=== PATIENT | female | born 1945 | race Caucasian/White ===

== ENCOUNTER 2024-08-11 13:49 | Emergency (ER) | payer MEDICARE, SELFPAY ==
[2024-08-11 16:30] VITALS: BP 128/86
--- NOTE | 2024-08-11 17:02 | ED.GENMED ---
History of Present Illness
General
Chief Complaint: Fall
Time Seen by Provider: 08/11/24 15:18
History of Present Illness
History of Present Illness:
Note:
CHIEF COMPLAINT(S)
Head trauma due to a fall from a recliner while playing with her granddaughter.
HISTORY OF PRESENT ILLNESS
The patient is a 76-year-old female who experienced a fall from a recliner while playing with her granddaughter. The fall resulted in her hitting her head on a window sill, with noted tenderness and a slight bogginess in the area of impact. The
incident was unwitnessed, and the patient reports no neck pain when pressure is applied to the cervical spine, and no chest or abdominal pain. Additionally, she denied any arm or leg weakness or pain. There is a prior history of a fall approximately
six months ago, but no concussion was diagnosed at that time. The patient is not on any anticoagulant therapy.
PHYSICAL EXAM
- Neurological: Tenderness and slight bogginess noted at the site of the head impact.
- Respiratory: Clear lung sounds, no pain upon deep breathing.
- Musculoskeletal: No tenderness upon palpation of the thoracic spine.
- Abdominal: No tenderness noted upon palpation.
- Vital signs reviewed. Nursing notes reviewed.
PLAN
1. Obtain a CT scan of the head to rule out any intracranial bleeding, given the patients age and the presence of a bump.
2. Follow-up to discuss CT results and further management.
DIFFERENTIAL DIAGNOSIS
The Differential Diagnosis includes, in no particular order and is not limited to:
1. Head trauma
2. Intracranial bleed
3. Concussion
4. Skull fracture
5. Subdural hematoma
6. Cervical spine injury
7. Scalp hematoma
8. Post-concussive syndrome
9. Contusion
10. Traumatic brain injury
CARE-UPDATE
08/11/24 - 17:[address] scan results show no signs of bleeding, confirming there are no acute intracranial issues. The patient reports feeling well and is deemed safe for discharge. Discharge paperwork will be prepared, and the patient is cleared to return home.
Phy Exam
Physical Exam
Physical Exam:
See HPI
Course
Orders/Labs/Results
Orders:
Orders
08/11/24 15:25
CT Head W/o Iv Contrast Urgent
Comment:
Reason For Exam: head trauma HURST
Vital Signs
Initial and Last Documented VS:
Initial Vital Signs
Temp Pulse Resp Pulse Ox
36.8 C 83 17 99
08/11/24 13:54 08/11/24 13:54 08/11/24 13:54 08/11/24 13:54
Last Documented Vital Signs
Temp Pulse Resp BP Pulse Ox
36.6 C 79 16 128/86 98
08/11/24 16:30 08/11/24 16:30 08/11/24 16:30 08/11/24 16:30 08/11/24 16:30
*Critical Care Note
Total Time (30-74mins, 75-104mins- exclusive of procedures): Not Applicable
ED Attending Note
-
Portions of this chart may have been created with voice recognition software.� Occasional wrong word or��sound alike� substitutions may have occurred due to the inherent limitations of voice recognition software.
Discharge Plan
Departure
Referrals:
Alyssa Cabello CRNP [Family Provider, Internal Medicine]
Interventions
Interventions:
*Risk Screen - Suicide Last Done: 08/11/24 13:55
*General Assessment Last Done: 08/11/24 13:55
*Neglect/Abuse Screening Last Done: 08/11/24 13:55
*ED COVID-19 Vaccine History Last Done: 08/11/24 13:55
ED-Musculoskeletal Assessment Last Done: 08/11/24 14:45
ED- Neurological Assessment Last Done: 08/11/24 14:45
ED-Skin Assessment Last Done: 08/11/24 14:45
Discharge Date and Time
Print Language: CITIZ[place]
== END 2024-08-11 17:25 | disposition home or self-care (01) ==
LOC: EMR 13:49
PROVIDERS: EMERGENCY PHYSICIAN Emergency Medicine; FAMILY PHYSICIAN Nurse Practitioner Family
DX: S09.90XA Unspecified injury of head, initial encounter (principal); W22.09XA Striking against other stationary object, initial encounter
CPT/HCPCS: 99284; 70450

== ENCOUNTER → 2025-02-18 08:02 | Outpatient (REF) | payer MEDICARE, SELFPAY ==
[2025-02-18 09:40] LABS: ALT (SGPT) 28 U/L (0-35); AST (SGOT) 24 U/L (14-36); Albumin 4.6 g/dl (3.5-5.0); Alkaline Phosphatase 96 U/L (38-126); Blood Urea Nitrogen 14 mg/dl (7-17); Calcium 9.2 mg/dl (8.4-10.2); Carbon Dioxide 20 mmol/L (22-30); Chloride 105 mmol/L (98-107); Glucose 93 mg/dl (70-99); HDL Cholesterol 40 mg/dl; LDL Cholesterol, Calculated 82 mg/dl; Potassium 4.7 mmol/L (3.5-5.1); Sodium 136 mmol/L (135-145); Total Protein 7.7 g/dl (6.3-8.2); Very Low Density Lipoprotein 39 mg/dl (0-30); eGFR > 60.00
[2025-02-18 10:08] LABS: Hematocrit 40.5 % (37.0-47.0); Hemoglobin 13.6 g/dL (12.0-16.0); Mean Corp Hgb Conc. 33.6 g/dL (33.0-37.0); Mean Corpuscular Volume 88.6 fL (81.0-99.0); Nucleated Red Blood Cells % 0 %; Red Cell Dist. Width 12.4 % (11.5-14.5)
[2025-02-18 10:51] LABS: Platelet Count 211 10^3/uL (130-400)
== END ==
LOC: REG 08:02
PROVIDERS: ATTENDING PHYSICIAN Nurse Practitioner Adult Health
DX: I10 Essential (primary) hypertension (principal); E78.00 Pure hypercholesterolemia, unspecified; R41.89 Other symptoms and signs involving cognitive functions and awareness; E78.5 Hyperlipidemia, unspecified
CPT/HCPCS: 36415; 80053; 80061; 84439; 84443; 85025